=== PATIENT | female | born 1935 | race Caucasian/White ===

== ENCOUNTER 2018-08-19 09:04 | Emergency (ER) | payer MEDICARE, OTHER ==
--- NOTE | 2018-08-19 10:22 | ED Physician Documentation ---
PD HPI CHEST PAIN - Stated complaint Stated Complaint: CHEST/BACK PX - Chief complaint Chief Complaint: Cardiac - History obtained from History obtained from: Patient - History of Present Illness Timing - onset: Today (she has had pain in substernal lower area radiating into midscapular area in the mornings many days for the past few weeks. She feels okay once gets up and feels fine doing activities and exercise.) Timing - onset during: Sleep, Rest (notes it in the mornings when she awakens and improves when she gets up. Did not improve today, so has had it for few hours.) Timing - duration: Hours Timing - details: Gradual onset, Still present Quality: Pressure, Dull Location: Substernal Radiation: Back (midscapular area) Worsened by: No: Exertion, Eating, Movement Associated symptoms: No: Shortness of air, Nausea, Feeling faint / dizzy, Palpitations, Cough Similar symptoms before: No diagnosis Recently seen: Not recently seen Review of Systems Constitutional: denies: Fever Nose: denies: Rhinorrhea / runny nose, Congestion Throat: denies: Sore throat Cardiac: reports: Chest pain / pressure. denies: Palpitations, Pedal edema, Calf pain Respiratory: denies: Dyspnea, Cough GI: denies: Nausea, Vomiting, Diarrhea : denies: Dysuria, Frequency Skin: denies: Rash, Lesions Musculoskeletal: denies: Extremity swelling Neurologic: denies: Generalized weakness, Focal weakness, Numbness, Near syncope Psychiatric: denies: Insomnia Endocrine: denies: Weight loss PD PAST MEDICAL HISTORY - Past Medical History Cardiovascular: High cholesterol Respiratory: None Endocrine/Autoimmune: None GI: None : Chronic bladder infection HEENT: None Psych: None Musculoskeletal: Osteoarthritis Derm: None - Past Surgical History General: Bowel surgery, Colonoscopy /EXTERNAL AUDITOR: Mastectomy, Other HEENT: Cataracts - Present Medications Home Medications: Ambulatory Orders Medication Instructions Recorded Confirmed Aspirin [Aspir-Low] 81 mg PO DAILY 03/26/16 05/01/16 Nitrofurantoin Monohyd/M-Cryst 50 mg PO DAILY 03/26/16 03/27/16 [Macrobid 100 mg Capsule] Simvastatin [Zocor] 20 mg PO DAILY 03/26/16 05/01/16 raNITIdine [Zantac] 150 mg PO DAILY 03/26/16 03/27/16 Multivitamin [Multivitamins] 1 each PO DAILY 04/30/16 05/01/16 [place]-3S/Dha/Epa/Fish Oil [Fish 1 each PO 04/30/16 Oil 1,200 mg Softgel] Famotidine 20 mg PO DAILY #30 tablet 08/19/18 Lidocaine HCl [Lidocaine HCl 5 ml MM ONCE PRN #100 ml 08/19/18 Viscous] Sucralfate 1 gm PO TID #30 tablet 08/19/18 - Allergies Allergies/Adverse Reactions: Allergies Allergy/AdvReac Type Severity Reaction Status Date / Time No Known Drug Allergies Allergy Verified 08/19/18 09:14 - Family History Family history: reports: Non contributory PD ED PE NORMAL - Vitals Vital signs reviewed: Yes - General General: Alert and oriented X 3, No acute distress, Well developed/nourished - HEENT HEENT: Pharynx benign - Neck Neck: Supple, no meningeal sign, No adenopathy - Cardiac Cardiac: RRR, No murmur - Respiratory Respiratory: Clear bilaterally - Abdomen Abdomen: Soft, Non tender - Back Back: No CVA TTP - Derm Derm: Normal color, Warm and dry - Extremities Extremities: No tenderness to palpate, Normal ROM s pain, No edema, No calf tenderness / cord - Neuro Neuro: Alert and oriented X 3, No motor deficit, Normal speech Results - Vitals Vitals: Vital Signs - 24 hr 08/19/18 08/19/18 11:16 12:35 Temperature 36.5 C Heart Rate 67 Respiratory 20 Rate Blood Pressure 140/75 H 117/71 O2 Saturation 96 Oxygen O2 Source Room air - EKG (time done) 09:16 Rate: Rate (enter#) (65) Rhythm: NSR [place]: Normal Intervals: Normal ME QRS: Normal Ischemia: Normal ST segments. No: ST elevation c/w ischemia, ST depression - Labs Labs: Laboratory Tests 08/19/18 08/19/18 08/19/18 10:20 10:20 10:20 WBC 4.8 RBC 4.27 Hgb 13.3 Hct 38.2 MCV 89.7 MCH 31.2 H MCHC 34.8 RDW 13.2 Plt Count 255 MPV 7.2 L Neut # (Auto) 2.7 Lymph # (Auto) 1.5 [place] # (Auto) 0.4 Eos # (Auto) 0.2 Baso # (Auto) 0.0 Absolute Nucleated RBC 0.01 Nucleated RBC % 0.1 Sodium 136 Potassium 4.2 Chloride 107 Carbon Dioxide 25 Anion Gap 4.0 L BUN 13 Creatinine 0.7 Estimated GFR (MDRD) 80 L Glucose 88 Calcium 9.4 Total Bilirubin 0.7 AST 20 ALT 18 Alkaline Phosphatase 62 Troponin I < 0.04 B-Natriuretic Peptide Total Protein 7.1 Albumin 4.0 Globulin 3.1 Albumin/Globulin Ratio 1.3 Lipase 30 08/19/18 10:20 WBC RBC Hgb Hct MCV MCH MCHC RDW Plt Count MPV Neut # (Auto) Lymph # (Auto) [place] # (Auto) Eos # (Auto) Baso # (Auto) Absolute Nucleated RBC Nucleated RBC % Sodium Potassium Chloride Carbon Dioxide Anion Gap BUN Creatinine Estimated GFR (MDRD) Glucose Calcium Total Bilirubin AST ALT Alkaline Phosphatase Troponin I B-Natriuretic Peptide 23 Total Protein Albumin Globulin Albumin/Globulin Ratio Lipase - Rads (name of study) chest xray Radiology: Prelim report reviewed, EMP read contemporaneously (normal) PD MEDICAL DECISION MAKING - ED course Complexity details: considered differential (her symptoms pattern suggests reflux and not anginal. Labs and ECG are good. She had improvement with GI cock tail. ), d/w patient Departure - Departure Disposition: Home, Self Care Clinical Impression: Chest pain Qualifiers: Chest pain type: precordial pain Qualified Code(s): R07.2 - Precordial pain Condition: Stable Record reviewed to determine appropriate education?: Yes Instructions: ED Chest Pain NonCardiac, ED GERD Follow-Up: David Juares ARNP [Primary Care Provider] - Prescriptions: Famotidine 20 mg PO DAILY #30 tablet Lidocaine HCl [Lidocaine HCl Viscous] 5 ml MM ONCE PRN #100 ml PRN Reason: Pain Sucralfate 1 gm PO TID #30 tablet Comments: I think your chest pain is coming from irritation of the esophagus from likely reflux and does not sound like cardiac pain. Your EKG chest x-ray and blood tests are without any acute abnormalities. No signs of heart attack or heart failure. I would suggest using famotidine which is an acid reducing medicine daily for the next month or 2. Use sucralfate which coats the esophagus and stomach at least nightly before bed to try to prevent the morning symptoms. He could use it 2-3 times a day as needed. Add antacid such as Mylanta with the l idocaine for an acute episodes of discomfort. Recheck if not improved overall over the next week or so. Discharge Date/Time: 08/19/18 12:36
[2018-08-19 10:28] LABS: BASOPHILS % (AUTO) 0.8 %; EOSINOPHILS # (AUTO) 0.2 10^3/uL (0.0-0.7); HGB - HEMOGLOBIN 13.3 g/dL (12.0-16.0); LYMPHOCYTES # (AUTO) 1.5 10^3/uL (1.5-3.5); LYMPHOCYTES % (AUTO) 30.6 %; MEAN CORPUSCULAR HEMOGLOBIN 31.2 pg (27.0-31.0); MEAN CORPUSCULAR HGB CONC 34.8 g/dL (32.0-36.0); MEAN CORPUSCULAR VOLUME 89.7 fL (81.0-99.0); MEAN PLATELET VOLUME 7.2 fL (7.9-10.8); MONOCYTES # (AUTO) 0.4 10^3/uL (0.0-1.0); MONOCYTES % (AUTO) 7.8 %; NEUTROPHILS # (AUTO) 2.7 10^3/uL (1.5-6.6); NEUTROPHILS % (AUTO) 56.8 %; PLT - PLATELET COUNT 255 10^3/uL (130-450); RED BLOOD COUNT 4.27 10^6/uL (4.20-5.40); RED CELL DISTRIBUTION WIDTH 13.2 % (12.0-15.0); WHITE BLOOD COUNT 4.8 x10^3/uL (4.8-10.8)
[2018-08-19 10:47] LABS: ALBUMIN/GLOBULIN RATIO 1.3 (1.0-2.2); BILIRUBIN,TOTAL 0.7 mg/dL (0.2-1.0); CALCIUM 9.4 mg/dL (8.5-10.3); CREATININE 0.7 mg/dL (0.4-1.0); TOTAL PROTEIN 7.1 g/dL (6.7-8.2)
[2018-08-19] MEDS ORDERED: FAMOTIDINE 20 MG TABLET PO STA (10:50)
[2018-08-19] MEDS ORDERED: LIDOCAINE VISCOUS 2% 15 ML UDC MM STA (10:50)
[2018-08-19] MEDS ORDERED: MAG HYDROX/AL HYDROX/SIMETH 30 ML UDC PO STA (10:50)
--- NOTE | 2018-08-19 11:15 | XRAY Report ---
Reason: chest pain Procedure Date: 08/19/2018 Accession Number: [id number] / [id number] Procedure: XR - Chest 1 View X-Ray CPT Code: 05251 FULL RESULT: EXAM: CHEST RADIOGRAPHY EXAM DATE: 08/19/2018 10:50 AM. CLINICAL HISTORY: Chest pain. COMPARISON: 04/01/2016. TECHNIQUE: 1 view. FINDINGS: Lungs/Pleura: No focal opacities evident. No pleural effusion. No pneumothorax. Mediastinum: Heart size is normal. Aorta is mildly tortuous. Aortic atherosclerosis. Other: Oval calcification projects over the right midlung, as before. Surgical clips are again seen in the soft tissues of the right hemithorax and right axilla. IMPRESSION: 1. No acute disease in the chest. RADIA
[2018-08-19 12:37] VITALS: BP 117/71
== END 2018-08-19 12:36 | disposition home or self-care (01) ==
LOC: ED 09:04
DX: R07.2 Precordial pain (principal); E78.00 Pure hypercholesterolemia, unspecified; Z90.10 Acquired absence of unspecified breast and nipple; Z79.82 Long term (current) use of aspirin
CPT/HCPCS: 36415; 71045; 80053; 83690; 83880; 84484; 85025; 93005; 99283; A9270